=== PATIENT | male | born 1935 | race Caucasian/White ===

== ENCOUNTER → 2017-12-17 | Outpatient (CLI) | payer MEDICARE ==
[~2017-12-17] MED LIST: ASPIR 8181 MG; BENAZEPRIL HCL10 MG PO; CENTRUM COMPLE1 EACH; CRESTOR10 MG PO; FLONASE; METFORMIN HCL500 MG PO; PLAVIX75 MG PO
[2017-12-17 11:18] LABS: BASOPHILS % 0.4 % (0.0-1.0); EOSINOPHILS # (AUTO) 0.2 (0.0-0.4); EOSINOPHILS % 2.3 % (0.0-6.0); HEMATOCRIT 39.3 % (38.2-49.6); HEMOGLOBIN 13.5 g/dL (14.0-18.0); LYMPHOCYTES # (AUTO) 2.2 (1.0-3.2); MEAN CORPUSCULAR HEMOGLOBIN 31.3 pg (28-32); MEAN CORPUSCULAR HGB CONC 34.4 g/dL (31-35); MEAN CORPUSCULAR VOLUME 91.2 fL (81-99); MONOCYTES # (AUTO) 0.6 (0.2-0.8); PLATELET COUNT 177 x10e3/uL (140-360); RED BLOOD COUNT 4.31 x10e6/uL (4.3-5.7); RED CELL DISTRIBUTION WIDTH 11.7 % (11.7-14.4)
[2017-12-17 11:44] LABS: ALBUMIN 3.7 g/dL (3.5-5.0); ANION GAP 12.6 mmol/L (8-16); CALCIUM 10.1 mg/dL (8.4-10.2); CHOL/HDL RATIO 4.5 (3.9-4.7); CREATININE, SERUM 1.89 mg/dL (0.72-1.25); POTASSIUM 4.6 mmol/L (3.5-5.1)
--- NOTE | 2017-12-18 08:25 | Diagnostic Imaging Report ---
History: Low back pain, right-sided pain Comparison studies: None Technique: Sagittal, coronal and axial T2 , sagittal T1 and IR, axial spin density oblique. Intravenous contrast: None Findings: Number of lumbar vertebral bodies:5 Alignment: Straightening of the lumbar lordosis. Minimal grade 1 anterolisthesis of L4 over L5 and minimal grade 1 retrolisthesis of L5 over S1.Mild levoscoliosis centered at L4-L5. Soft tissues: Mild edema signal at the right anterolateral soft tissues surrounding a L4-L5 bridging osteophyte. 1.2 cm left interpolar kidney cyst. Paraspinal muscles: Mild to moderate fatty infiltration secondary to atrophy more significant at the lumbosacral junction. Lower thoracic cord:Normal in signal and morphology. The tip of the conus is at L1 inferior endplate. Cauda equina: No masses. No arachnoiditis. Vertebrae: Bridging osteophytes from L1 through L5 on the right anterolateral aspect with edema signal at L1 inferior endplate and L4-L5 endplates in the right. No compression fractures, infection or neoplasm. Degenerative changes: L1-L2: Disc degeneration with loss of T2 signal. Mild diffuse disc bulge and mild facet hypertrophy without significant canal stenosis or foraminal narrowing. L2-L3: Disc degeneration with loss of T2 signal. Diffuse disc bulge with superimposed small left central disc protrusion, mild facet hypertrophy and ligamentum flavum thickening results in mild canal stenosis without significant foraminal narrowing. L3-L4: Disc degeneration with loss of T2 signal. Diffuse disc bulge with superimposed small central annular fissure, moderate facet hypertrophy and ligamentum flavum thickening results in moderate canal stenosis and moderate right foraminal narrowing. L4-L5: Disc degeneration with loss of T2 signal. Diffuse disc bulge, moderate facet hypertrophy and ligamentum flavum thickening results in severe canal stenosis and mild right foraminal narrowing. 0.4 cm medially projecting synovial cyst arising from the right facet joint contributes to the canal stenosis. L5-S1: Fused intervertebral space. Mild facet hypertrophy with patent canal and foramina. Additional findings: None IMPRESSION: Severe canal stenosis at L4-L5 secondary to diffuse disc bulge and posterior element hypertrophy. 0.4 cm synovial cyst arising from the right facet joint contributes to the canal stenosis. Synovitis changes at L4-L5. Moderate degenerative canal stenosis and moderate right foraminal at L3-L4. Right anterolateral bridging osteophytes from L1 through L5 with edema signal at L1 inferior endplate and L4-L5 endplates. Adjacent soft tissue inflammation at L4-L5 right osteophyte. 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 Signed by: DR Camacho Foster M.D. on 12/18/2017 8:21 AM
== END ==
LOC: LAB 11:00
PROVIDERS: ATTEND General Practice
DX: E11.65 Type 2 diabetes mellitus with hyperglycemia (principal); I10 Essential (primary) hypertension; Z79.84 Long term (current) use of oral hypoglycemic drugs; R53.83 Other fatigue; M54.5 Low back pain; M25.551 Pain in right hip
CPT/HCPCS: 36415; 72148; 80053; 80061; 83036; 85025

== ENCOUNTER → 2018-01-01 | Outpatient (CLI) | payer MEDICARE ==
--- NOTE | 2018-01-01 16:01 | Diagnostic Imaging Report ---
PROCEDURE: Frontal and lateral views of the chest. COMPARISON: Patients [facility], , CHEST 2 VIEWS, 03/07/2016, 8:01. INDICATIONS: PRE OP HERNIATED DISC FINDINGS: Lines/tubes: None. Lungs: The lungs are well inflated and grossly clear. Likely azygos lobe. There is no evidence of pneumonia or pulmonary edema. Pleura: There is no pleural effusion or pneumothorax. Heart and mediastinum: The heart and the mediastinum are normal. Bones: No acute bony abnormality. Degenerative changes in the thoracic spine. IMPRESSION: 1. No acute cardiopulmonary abnormalities. Chase Malik M.D. Dictated by: Chase Malik M.D. on 01/01/2018 at 16:03 Electronically approved by: Chase Malik M.D. on 01/01/2018 at 16:03
== END ==
LOC: RAD 15:08
PROVIDERS: ATTEND General Practice
DX: Z01.818 Encounter for other preprocedural examination (principal); M51.26 Other intervertebral disc displacement, lumbar region; R06.02 Shortness of breath; R42 Dizziness and giddiness
CPT/HCPCS: 71046

== ENCOUNTER 2019-12-30 23:24 | Emergency (ER) | payer MEDICARE ==
[~2019-12-30] VITALS: Ht 175.3 cm; Wt 83.9 kg
[2019-12-30] MEDS ORDERED: PANTOPRAZOLE 40 MG 10ML VIAL IV STA (23:25)
--- OUTSIDE RECORDS SUMMARY | 2019-12-30 23:27 | XMS REPORT | Continuity of Care Document ---
Author Author [employer]ALONDRA Organization [employer] Address Unknown Phone Unavailable Care Team Providers Care Space Operations Name Role Phone [employer] Information [employer] Unavailable Un available Problems Problem Status Onset Date Classification Date Reported Comments Source 466.0 - ACUTE BRONCHITI Active 07/18/2012 [facility] [place] Medications No Data Provided for This Section Allergies, Adverse Reactions, Alerts No Known Medication Allergies Immunizations No Data Provided for This Section Results No Data Provided for This Section Pathology Reports No Data Provided for This Section Diagnostic Reports No Data Provided for This Section Consultation Notes No Data Provided for This Section Discharge Summaries No Data Provided for This Section History and Physicals No Data Provided for This Section Vital Signs No Data Provided for This Section Encounters Location Location Details Encounter Type Encounter Number Reason For Visit Attending Provider ADM Date DC Date Status Source OD [id number] 466.0 - ACUTE BRONCHITI NANETTE MCCLOUD 07/18/2012 Active [facility] [place] Procedures No Data Provided for This Section Assessment and Plan No Data Provided for This Section Plan of Care No Data Provided for This Section Social History No Data Provided for This Section Family History No Data Provided for This Section Advance Directives No Data Provided for This Section Functional Status No Data Provided for This Section
--- OUTSIDE RECORDS SUMMARY | 2019-12-30 23:27 | XMS REPORT | Clinical Summary ---
Author Author [facility] Address Unknown Phone Unavailable Care Team Providers Care Legal Records Clerk Name Role Phone Armin Carter MD PCP Allergies No Known Allergies Medications End Date Status Medication Sig Dispensed Refills Start Date Active pravastatin (PRAVACHOL) Take 40 mg by 0 40 MG tablet mouth daily. Active metFORMIN (GLUCOPHAGE) Take 500 mg 0 500 mg tablet by mouth daily. Active clopidogrel (PLAVIX) 75 Take 75 mg by 0 mg tablet mouth daily. Active aspirin (ECOTRIN) 81 MG Take 81 mg by 0 enteric coated tablet mouth daily. Active tamsulosin (FLOMAX) 0.4 Take 0.4 mg 0 mg capsule by mouth daily with dinner. Active multivit-min/FA/lycopen/l Take 1 tablet 0 utein (CENTRUM SILVER MEN by mouth ORAL) daily. Active Problems Not on file Encounters Care Team Description Date Type Specialty Erich Kaiser MD Selective coronary angiography [14579 (C PT)] 01/09/2019 Surgery Procedural Cardiolo gy Erich Kaiser MD Abnormal nuclear stress test; Angina at rest (HCC) 01/09/2019 Hospital Procedural Cardiolo gy Encounter after 12/29/2018 Social History Date Tobacco Use Types Packs/Day Years Used Never Smoker Smokeless Tobacco: Never Used Drinks/Week oz/Week Comments Alcohol Use occasionally drinks a beer Yes Sex Assigned at Date Recorded Not on file Industry Job Start Date Occupation Not on file Not on file Not on file Travel End Travel History Travel Start No recent travel history available. Last Filed Vital Signs Reading Time Taken Comments Vital Sign 132/63 01/09/2019 10:15 AM CDT Blood Pressure 67 01/09/2019 10:30 AM CDT Pulse 36.4 C (97.5 F) 01/09/2019 7:40 AM CDT Temperature 12 01/09/2019 10:30 AM CDT Respiratory Rate 98% 01/09/2019 10:30 AM CDT Oxygen Saturation - - Inhaled Oxygen Concentration 86.8 kg (191 lb 5 oz) 01/09/2019 5:27 AM CDT Weight 175.3 cm (5' 9") 01/09/2019 5:27 AM CDT Height 28.25 01/09/2019 5:27 AM CDT Body Mass Index Plan of Treatment Not on file Procedures Comments Procedure Name Priority Date/Time Associated Diag nosis CV SELECTIVE CORONARY Routine 01/09/2019 Abnormal nuclear stress ANGIOGRAPHY 7:28 AM CDT test Angina at rest (HCC) CV LEFT HEART CATH Routine 01/09/2019 Abnormal nu clear stress 7:28 AM CDT test Angina at rest (HCC) ECG 12-LEAD STAT 01/09/2019 5:17 AM CDT POC GLUCOSE Routine 01/09/2019 5:16 AM CDT after 12/29/2018 Results * Cv wheelabrator operator procedure (01/09/2019 7:28 AM CDT) Specimen Narrative Performed At [facility] LM- patent LAD- mid stents mild in-stent restenosi s LCX- small vessel OM1- stent patent RCA- mid 40% LVEDP 18mmHg No aortic valve gradient upon pullback No LV gram due to elevated sCr Medical management Performing Organization Address City/State/Zipcomd Ph one Number [facility] [address] [place] [address], * ECG 12 lead (01/09/2019 5:17 AM CDT) Ventricular 71 [facility] rate Atrial rate 71 [facility] MO interval 192 [facility] QRSD interval 100 [facility] QT interval 406 [facility] QTC interval 441 [facility] P axis 1 31 [facility] QRS axis 1 40 [facility] T wave axis 44 [facility] EKG impression Normal sinus rhythm with sinus [facility] MU SE arrhythmia-Normal ECG-No previous ECGs available- Specimen Narrative Performed At This result has an attachment that is n ot available. Performing Organization Address City/State/Zipcode Ph one Number [facility] MUSE [address] [place] [address] * POC glucose (01/09/2019 5:16 AM CDT) POC glucose 212 (H) 65 - 99 mg/dL CARTER Comment: [facility] Notified RN HOSPITAL Meter ID: [id number] Dry Clipper Tender: Kevin Mendes Specimen Performing Organization Address City/State/[facility] Ph one Number [facility] DEPARTMENT OF [address] [place] [phone] PATHOLOGY AND GENOMIC MEDICINE [facility] [address] [place] [phone] HOSPITAL after 12/29/2018 Insurance Type Payer Benefit Subscriber ID Effective Phone Address Plan / Dates Group Medicare MEDICARE MEDICARE xxxxxxxxxxx 2000- CARTER, PART A AND Present [place] B Commercial AAR AAR xxxxxxxxxxx 2017-P SUPPLEMENT resent Advance Directives For more information, please contact: [phone] Patient Ultrasound Supervisor Explanation Type Date Recorded Advance Directives, Living Will and Medical Power of Handle And Vent Machine Operator
--- OUTSIDE RECORDS SUMMARY | 2019-12-30 23:27 | XMS REPORT | CCD ---
Author Author [employer] ALONDRA Desouza Organization [facility] Outpatient Imaging - Kirill hurst Address Unknown Phone Unavailable Care Team Providers Care Manager Product Marketing Name Role Phone Armin Carter CP Allergies, Adverse Reactions, Alerts Substance Reaction Status NKDA Active
--- OUTSIDE RECORDS SUMMARY | 2019-12-30 23:27 | XMS REPORT ---
Author Author [facility] t Organization [facility] Address [address] [place] [address] Phone Unavailable Care Team Providers Care Pharmacy Tech Name Role Phone Raul MUNOZ, Jose Funez PCP Kali Kaiser MD Attphys Ger MCCLOUD Attphys Unavailable Payers Payer Name Policy Type Policy Number Effective Date Expiration Date S pamela MEDICAREMEDICARE PART A AND Slwbckffznza84/08/1999-PresentHOU ДМИТРИЙ FLMedicare xxxxxxxxxxx 2000 00:00:00 Jeffrey Dickerson AARPAARP SUPPLEMENTxxxxxxxxxxx2017-PresentCommercial xxxxxxxxxxx 2017 00:00:00 Jeffrey Dickerson Problems Condition Name Condition Details Condition Category Status Onset Date Resolution Date Last Treatment Date Treating Clinician Comments Source 466.0 - ACUTE BRONCHITI 466. 0 - ACUTE BRONCHITI Active 07/18/2012 [facility] [place] Diagnosis Active 2012-07-18 00:01:00 2012-07-18 15:15:00 [facility] [place] Allergies, Adverse Reactions, Alerts This patient has no known allergies or adverse reactions. Social History Social Habit Start Date Stop Date Quantity Comments Source Sex Assigned At Shai lombardo Shinto Alcohol intake 2019-01-29 00:00:00 2019-01-29 00:00:00 Current drinker of alcohol (finding) Jeffrey Dickerson Alcohol Comment 2019-01-08 00:00:00 2019-01-08 00:00:00 occasion ally drinks a beer Jeffrey Dickerson Smoking Status Start Date Stop Date Source Never smoker Jeffrey Lealaldo t Medications Ordered Medication Name Filled Medication Name Start Date Stop Da te Current Medication? Ordering Clinician Indication Dosage Frequency Signature (SIG) Comments Components Source pravastatin (PRAVACHOL) 40 MG tablet 2019-01-09 11:08:04 Ye s 40mg QD Take 40 mg by mouth daily. Jeffrey Ernandezo dist metFORMIN (GLUCOPHAGE) 500 mg tablet 2019-01-09 11:08:04 Ye s 500mg QD Take 500 mg by mouth daily. Jeffrey Ernandez odist clopidogrel (PLAVIX) 75 mg tablet 2019-01-09 11:08:04 Yes 75mg QD Take 75 mg by mouth daily. [facility] aspirin (ECOTRIN) 81 MG enteric coated tablet 2019-01-09 11:08:0 4 Yes 81mg QD Take 81 mg by mouth daily. Letitia Dickerson tamsulosin (FLOMAX) 0.4 mg capsule 2019-01-09 11:08:04 Yes .4mg QD Take 0.4 mg by mouth daily with dinner. Ev Dickerson multivit-min/FA/lycopen/lutein (CENTRUM SILVER MEN ORAL) 2019-01-09 11:08:04 Yes 1{tbl} QD Take 1 tablet by mouth daily. Jeffrey Dickerson Vital Signs Vital Name Observation Time Observation Value Comments Source Heart rate 2019-01-09 10:30:00 67 /min Jeffrey Dickerson Respiratory rate 2019-01-09 10:30:00 12 /min Louie Dickerson Oxygen saturation in Arterial blood by Pulse oximetry 01-09 10:30:00 98 /min Jeffrey Dickerson Systolic blood pressure 2019-01-09 10:15:00 132 mm[Hg] Jeffrey Dickerson Diastolic blood pressure 2019-01-09 10:15:00 63 mm[Hg] Jeffrey Dickerson Body temperature 2019-01-09 07:40:00 36.39 Charlotte Louie Dickerson Body height 2019-01-09 05:27:00 175.3 cm Jeffrey Dickerson Body weight 2019-01-09 05:27:00 86.779 kg Jeffrey Dickerson BMI 2019-01-09 05:27:00 28.25 kg/m2 Jeffrey Dickerson Procedures Procedure Date / Time Performed Performing Clinician Sour e CV LEFT HEART CATH 2019-01-09 07:28:04 Erich Kaiserist CV SELECTIVE CORONARY ANGIOGRAPHY 2019-01-09 07:28:04 Tin Kaiser ECG 12-LEAD 2019-01-09 05:17:25 Erich Kaiser POC GLUCOSE 2019-01-09 05:16:00 Erich Kaiser Encounters Start Date/Time End Date/Time Encounter Type Admission Type [facility] Care Department Encounter ID Source 2012-07-18 15:06:00 2012-07-18 15:06:00 OD MHIEALT MHIEALT [id number] [facility] [place] Results Test Description Test Time Test Comments Results Result Comments Source Cv labor/excavator procedure 2019-01-28 16:17:28 LM- pa tentLAD- mid stents mild in- stent restenosisLCX- small vesselOM1- stent patentRCA- mid 40% LVEDP 18mmHgNo aortic valve gradient upon pullbackNo LV gram due to elevated sCr Medical management Jeffrey Dickerson ECG 12 lead 2019-01-09 10:05:52 Test Item Ventricular rate (test code = 253) 71 Atrial rate (test code = 255) 71 WA interval (test code = 266) 192 QRSD interval (test code = 260) 100 QT interval (test code = 264) 406 QTC interval (test code = 265) 441 P axis 1 (test code = 267) 31 QRS axis 1 (test code = 268) 40 T wave axis (test code = 270) 44 EKG impression (test code = 273) Normal sinus rhythm w ith sinus arrhythmia- Normal ECG-No previous ECGs available- [id number] 05:21:24* Test Item Value Reference Range Interpretation Comments POC glucose (test code = 51115-9) 212 mg/dL 65-99 H [facility] Notified RNMeter ID: [id number]: Kevin Mendes Lab Interpretation (test code = 23171-1) Abnormal [facility] [place] [address] Patient Name: ALONDRA DONNELLY MR #: [id number] : 1935 Age/Sex: 82/M Req #: [id number] Adm Physician: Ordered by: NANETTE MCCLOUD Report #: [id number] Location: [facility] Room/Bed: Procedure: [id number] DX/CHEST 2 VIEWS Exam Date: 01/01/18 Exam Time: 1522 REPORT STATUS: Signed PROCEDURE: Frontal and lateral views of the chest. COMPARISON: Patient s [facility], DX, CHEST 2 VIEWS, 03/07/2016, 8:01. INDICATIONS: WA E OP HERNIATED DISC FINDINGS: Lines/tubes: None. Lungs: The lungs are well inflated and grossly clear. Likely azygos lobe. There is no ev idence of pneumonia or pulmonary edema. Pleura: There is no pleural effus ion or pneumothorax. Heart and mediastinum: The heart and the mediastinum are normal. Bones: No acute bony abnormality. Degenerative changes in th e thoracic spine. IMPRESSION: 1. No acute cardiopulmonary abnor malities. Chase Reid M.D. Dictated by: Chase Reid M.D. on 01/01/2018 at 16:03 Electronically approved by: Chase lee M.D. on 01/01/2018 at 16:03 Dictated By: CHASE REID MD 1600 Transcribed By: IN FCE on 01/01/18 1603 COPY TO: NANETTE MCCLOUD MRI SPINE LUMBAR WO [place] [address] Patient Name: ALONDRA DONNELLY MR #: [id number] : 1 Age/Sex: 82/M Req #: [id number] Adm Physician: Ordered by: NANETTE MCCLOUD Report #: [id number] Location: LAB Room/Bed : Procedure: [id number] MRI/MRI SPINE LUMBAR WO Exam Date: Exam Time: REPORT STATUS: Signed His tory: Low back pain, right-sided pain Comparison studies: None Technique: Sagittal, coronal and axial T2 , sagittal T1 and IR, axial spin density o blique. Intravenous contrast: None Findings: Number of lumbar verteb ral bodies:5 Alignment: Straightening of the lumbar lordosis. Minimal grade 1 anterolisthesis of L4 over L5 and minimal grade 1 retrolisthesis of L5 over S1.Mild levoscoliosis centered at L4-L5. Soft tissues: Mild edema signal at the right anterolateral soft tissues surrounding a L4-L5 bridging osteophyte. 1.2 cm left interpolar kidney cyst. Paraspinal muscles: Mild to moderate fatt y infiltration secondary to atrophy more significant at the lumbosacral juncti on. Lower thoracic cord:Normal in signal and morphology. The tip of the conus is at L1 inferior endplate. Cauda equina: No masses. No arachnoiditis. Vertebrae: Bridging osteophytes from L1 through L5 on the right anterolateral aspect with edema signal at L1 inferior endplate and L4-L5 endplates in the r ight. No compression fractures, infection or neoplasm. Degenerative ortiz es: L1-L2: Disc degeneration with loss of T2 signal. Mild diffuse disc bu lge and mild facet hypertrophy without significant canal stenosis or foraminal narrowing. L2-L3: Disc degeneration with loss of T2 signal. Diffuse disc bulge with superimposed small left central disc protrusion, mild facet hypert rophy and ligamentum flavum thickening results in mild canal stenosis without significant foraminal narrowing. L3-L4: Disc degeneration with loss of T2 signal. Diffuse disc bulge with superimposed small central annular fissure, moderate facet hypertrophy and ligamentum flavum thickening results in modera te canal stenosis and moderate right foraminal narrowing. L4-L5: Disc d egeneration with loss of T2 signal. Diffuse disc bulge, moderate facet hypertr ophy and ligamentum flavum thickening results in severe canal stenosis and mil d right foraminal narrowing. 0.4 cm medially projecting synovial cyst arising from the right facet joint contributes to the canal stenosis. L5-S1: Fuse d intervertebral space. Mild facet hypertrophy with patent canal and foramina. Additional findings: None IMPRESSION: Severe canal stenosis at L4-L5 secondary to diffuse disc bulge and posterior element hypertrophy. 0.4 cm synovial cyst arising from the right facet joint contributes to the canal s tenosis. Synovitis changes at L4-L5. Moderate degenerative canal stenosis a nd moderate right foraminal at L3-L4. Right anterolateral bridging osteophy lester from L1 through L5 with edema signal at L1 inferior endplate and L4-L5 end plates. Adjacent soft tissue inflammation at L4-L5 right osteophyte. Diff use disc degeneration of the lumbar spine and other degenerative changes as de scribed above. Signed by: DR Camacho Foster M.D. on 12/18/2017 8:21 A M Dictated By: CAMACHO PEREZ MD 0 Transcribed By: SARAI on 12/18/17820 CO PY TO: NANETTE MCCLOUD
[2019-12-30 23:49] LABS: BASOPHILS # (AUTO) 0.1 (0.0-0.1); BASOPHILS % 0.6 % (0.0-1.0); EOSINOPHILS # (AUTO) 0.5 (0.0-0.4); EOSINOPHILS % 5.4 % (0.0-6.0); HEMATOCRIT 37.9 % (38.2-49.6); HEMOGLOBIN 12.9 g/dL (14.0-18.0); LYMPHOCYTES # (AUTO) 2.7 (1.0-3.2); LYMPHOCYTES % 28.4 % (18.0-39.1); MEAN CORPUSCULAR HEMOGLOBIN 30.8 pg (28-32); MEAN CORPUSCULAR VOLUME 90.5 fL (81-99); MONOCYTES # (AUTO) 0.7 (0.2-0.8); MONOCYTES % 7.6 % (4.4-11.3); NEUTROPHILS # (AUTO) 5.5 (2.1-6.9); NEUTROPHILS % 57.8 % (38.7-80.0); PLATELET COUNT 174 x10e3/uL (140-360); RED BLOOD COUNT 4.19 x10e6/uL (4.3-5.7)
[2019-12-30] MEDS ORDERED: HYDRALAZINE HCL 20 MG/ML VIAL IV STA (23:57)
[2019-12-31 00:07] LABS: ALBUMIN 4.2 g/dL (3.5-5.0); ALBUMIN/GLOBULIN RATIO 1.2 (0.8-2.0); ANION GAP 17.2 mmol/L (8-16); CALCIUM 9.6 mg/dL (8.4-10.2); CREATININE, SERUM 1.91 mg/dL (0.72-1.25); POTASSIUM 4.2 mmol/L (3.5-5.1)
[2019-12-31 00:09] LABS: AMYLASE 68 U/L (25-125); LIPASE 21 U/L (8-78)
[2019-12-31 00:14] LABS: CREATINE KINASE MB 1.7 ng/mL (0-5.0)
--- NOTE | 2019-12-31 00:21 | Emergency Department Note ---
History of Present Illnes History of Present Illness Chief Complaint: General Medicine Complaints History of Present Illness This is a 84 year old male who presents with c/o throat burning since noon, worse when he lays down and better when he sits up. Historian: Patient Arrival Mode: [place] Onset (how long ago): hour(s) (11) Location: throat Quality: burning sensation Radiation: non-radiation Severity: moderate Onset quality: gradual Duration (how long): hour(s) (11) Timing of current episode: constant Progression: unchanged Chronicity: new Context: recent illness Exacerbating factors: none Associated symptoms: denies other symptoms Treatments prior to arrival: none Risk factors: cad Past Medical/Family History Physician Review I have reviewed the patient's past medical and family history. Any updates have been documented here. Past Medical History Recent Fever: No Clinical Suspicion of Infectio: No New/Unexplained Change in Ment: No Past Medical History: Hypertension, CAD Past Surgical History: PCI Other Surgery: STENTS Social History Smoking Cessation: Never Smoker Alcohol Use: None Any Illegal Drug Use: No Family History Family history of heart diseas: No Other Last Tetanus: UNK Review of Systems Review of Systems Constitutional: no symptoms EENTM: as per HPI Cardiovascular: no symptoms Respiratory: no symptoms Gastrointestinal: no symptoms Genitourinary: no symptoms Musculoskeletal: no symptoms Neurological: no symptoms Psychological: no symptoms Endocrine: no symptoms Hematological/Lymphatic: no symptoms Review of other systems All other systems reviewed and negative. Physical Exam Related Data Allergies: Coded Allergies: No Known Allergies (Unverified , 06/23/15) Triage Vital Signs Vital Signs Date Time Temp Pulse Resp B/P (MAP) Pulse Ox O2 Delivery O2 Flow Rate FiO2 12/30/19 23:33 97.0 88 18 190/90 97 Vital signs reviewed: Yes Physical Exam CONSTITUTIONAL Constitutional: well-developed, well-nourished HENT HENT: normocephalic, atraumatic, oropharynx clear/moist, nose normal HENT L/R: left ext ear normal, right ext ear normal EYES Eyes: PERRL, conjunctivae normal NECK Neck: ROM normal PULMONARY Pulmonary: effort normal, breath sounds normal CARDIOVASCULAR Cardiovascular: regular rhythm, heart sounds normal, capillary refill normal, normal rate GASTROINTESTINAL Abdominal: soft, nontender, bowel sounds normal GENITOURINARY Genitourinary: exam deferred SKIN Skin: warm, dry MUSCULOSKELETAL Musculoskeletal: ROM normal NEUROLOGICAL Neurological: alert, oriented x 3, no gross motor or sensory deficits PSYCHOLOGICAL Psychological: mood/affect normal, judgement normal Results Laboratory Result Diagram: 12/30/19 5228 Laboratory Laboratory Tests Test 12/30/19 23:35 White Blood Count 9.52 x10e3/uL (4.8-10.8) Red Blood Count 4.19 x10e6/uL (4.3-5.7) Hemoglobin 12.9 g/dL (14.0-18.0) Hematocrit 37.9 % (38.2-49.6) Mean Corpuscular Volume 90.5 fL (81-99) Mean Corpuscular Hemoglobin 30.8 pg (28-32) Mean Corpuscular Hemoglobin Concent 34.0 g/dL (31-35) Red Cell Distribution Width 12.0 % (11.7-14.4) Platelet Count 174 x10e3/uL (140-360) Neutrophils (%) (Auto) 57.8 % (38.7-80.0) Lymphocytes (%) (Auto) 28.4 % (18.0-39.1) Monocytes (%) (Auto) 7.6 % (4.4-11.3) Eosinophils (%) (Auto) 5.4 % (0.0-6.0) Basophils (%) (Auto) 0.6 % (0.0-1.0) Neutrophils # (Auto) 5.5 (2.1-6.9) Lymphocytes # (Auto) 2.7 (1.0-3.2) Monocytes # (Auto) 0.7 (0.2-0.8) Eosinophils # (Auto) 0.5 (0.0-0.4) Basophils # (Auto) 0.1 (0.0-0.1) Absolute Immature Granulocyte (auto 0.02 x10e3/uL (0-0.1) Sodium Level 137 mmol/L (136-145) Potassium Level 4.2 mmol/L (3.5-5.1) Chloride Level 101 mmol/L (98-107) Carbon Dioxide Level 23 mmol/L (22-29) Anion Gap 17.2 mmol/L (8-16) Blood Urea Nitrogen 20 mg/dL (7-26) Creatinine 1.91 mg/dL (0.72-1.25) Estimat Glomerular Filtration Rate 34 ML/MIN (60-) BUN/Creatinine Ratio 10 (6-25) Glucose Level 260 mg/dL (74-118) Calcium Level 9.6 mg/dL (8.4-10.2) Total Bilirubin 0.6 mg/dL (0.2-1.2) Aspartate Amino Transf (AST/SGOT) 17 IU/L (5-34) Alanine Aminotransferase (ALT/SGPT) 15 IU/L (0-55) Alkaline Phosphatase 150 IU/L (40-150) Creatine Kinase 103 IU/L (30-200) Creatine Kinase MB 1.70 ng/mL (0-5.0) Troponin I 0.029 ng/mL (0-0.300) Total Protein 7.7 g/dL (6.5-8.1) Albumin 4.2 g/dL (3.5-5.0) Globulin 3.5 g/dL (2.3-3.5) Albumin/Globulin Ratio 1.2 (0.8-2.0) Amylase Level 68 U/L (25-125) Lipase 21 U/L (8-78) Laboratory Tests Test 12/30/19 23:35 White Blood Count 9.52 x10e3/uL (4.8-10.8) Red Blood Count 4.19 x10e6/uL (4.3-5.7) Hemoglobin 12.9 g/dL (14.0-18.0) Hematocrit 37.9 % (38.2-49.6) Mean Corpuscular Volume 90.5 fL (81-99) Mean Corpuscular Hemoglobin 30.8 pg (28-32) Mean Corpuscular Hemoglobin Concent 34.0 g/dL (31-35) Red Cell Distribution Width 12.0 % (11.7-14.4) Platelet Count 174 x10e3/uL (140-360) Neutrophils (%) (Auto) 57.8 % (38.7-80.0) Lymphocytes (%) (Auto) 28.4 % (18.0-39.1) Monocytes (%) (Auto) 7.6 % (4.4-11.3) Eosinophils (%) (Auto) 5.4 % (0.0-6.0) Basophils (%) (Auto) 0.6 % (0.0-1.0) Neutrophils # (Auto) 5.5 (2.1-6.9) Lymphocytes # (Auto) 2.7 (1.0-3.2) Monocytes # (Auto) 0.7 (0.2-0.8) Eosinophils # (Auto) 0.5 (0.0-0.4) Basophils # (Auto) 0.1 (0.0-0.1) Absolute Immature Granulocyte (auto 0.02 x10e3/uL (0-0.1) Sodium Level 137 mmol/L (136-145) Potassium Level 4.2 mmol/L (3.5-5.1) Chloride Level 101 mmol/L (98-107) Carbon Dioxide Level 23 mmol/L (22-29) Anion Gap 17.2 mmol/L (8-16) Blood Urea Nitrogen 20 mg/dL (7-26) Creatinine 1.91 mg/dL (0.72-1.25) Estimat Glomerular Filtration Rate 34 ML/MIN (60-) BUN/Creatinine Ratio 10 (6-25) Glucose Level 260 mg/dL (74-118) Calcium Level 9.6 mg/dL (8.4-10.2) Total Bilirubin 0.6 mg/dL (0.2-1.2) Aspartate Amino Transf (AST/SGOT) 17 IU/L (5-34) Alanine Aminotransferase (ALT/SGPT) 15 IU/L (0-55) Alkaline Phosphatase 150 IU/L (40-150) Creatine Kinase 103 IU/L (30-200) Creatine Kinase MB 1.70 ng/mL (0-5.0) Troponin I 0.029 ng/mL (0-0.300) Total Protein 7.7 g/dL (6.5-8.1) Albumin 4.2 g/dL (3.5-5.0) Globulin 3.5 g/dL (2.3-3.5) Albumin/Globulin Ratio 1.2 (0.8-2.0) Amylase Level 68 U/L (25-125) Lipase 21 U/L (8-78) Laboratory Tests Test 12/30/19 23:35 White Blood Count 9.52 x10e3/uL (4.8-10.8) Red Blood Count 4.19 x10e6/uL (4.3-5.7) Hemoglobin 12.9 g/dL (14.0-18.0) Hematocrit 37.9 % (38.2-49.6) Mean Corpuscular Volume 90.5 fL (81-99) Mean Corpuscular Hemoglobin 30.8 pg (28-32) Mean Corpuscular Hemoglobin Concent 34.0 g/dL (31-35) Red Cell Distribution Width 12.0 % (11.7-14.4) Platelet Count 174 x10e3/uL (140-360) Neutrophils (%) (Auto) 57.8 % (38.7-80.0) Lymphocytes (%) (Auto) 28.4 % (18.0-39.1) Monocytes (%) (Auto) 7.6 % (4.4-11.3) Eosinophils (%) (Auto) 5.4 % (0.0-6.0) Basophils (%) (Auto) 0.6 % (0.0-1.0) Neutrophils # (Auto) 5.5 (2.1-6.9) Lymphocytes # (Auto) 2.7 (1.0-3.2) Monocytes # (Auto) 0.7 (0.2-0.8) Eosinophils # (Auto) 0.5 (0.0-0.4) Basophils # (Auto) 0.1 (0.0-0.1) Absolute Immature Granulocyte (auto 0.02 x10e3/uL (0-0.1) Lab results reviewed: Yes Imaging Imaging results reviewed: Yes Impressions EXAMINATION: CHEST SINGLE (PORTABLE) INDICATION: Esophageal burning COMPARISON: None FINDINGS: TUBES and LINES: None. LUNGS: Normal lung volumes. Lungs are clear. No consolidations. PLEURA: No pleural effusion or pneumothorax. HEART AND MEDIASTINUM: The cardiomediastinal silhouette is unremarkable. BONES AND SOFT TISSUES: No acute osseous lesion. Soft tissues are unremarkable. UPPER ABDOMEN: No free air under the diaphragm. IMPRESSION: No acute thoracic radiographic abnormality. Signed by: Mamadou Burns DO on 12/31/2019 1:12 AM Procedures 12 Lead ECG Interpretation Subgrade Roller Operator: Interpreted by ED physician Rhythm: sinus rhythm Rate: normal BPM: 84 ST segments normal: Yes T waves normal: Yes Other findings: no other findings Clinical Impression: normal ECG Critical Care Time Subsequent provider I assumed direction of critical care for this patient from another provider of my specialty. Assessment & Plan Assessment & Plan Final Impression: (1) GERD (gastroesophageal reflux disease) (2) Hypertension Assessment & Plan pt with burning sensation to throat all day, no chest pain, however has cad history, cbc, cmp, cardiac enzymes, cxr, amylase lipase ordered to eval for for myocardial infarction, pancreatitis, elevated lft's protonix 40 mg iv ordered pts bp 190/92 states he did not take his bp medications today, hydralazine 10 mg iv ordered pt discharged with instructions for bland diet script protonix 30 mg po daily #15 Last Vital Signs Date Time Temp Pulse Resp B/P (MAP) Pulse Ox O2 Delivery O2 Flow Rate FiO2 12/31/19 00:02 190/92 12/31/19 00:00 84 20 100 12/30/19 23:33 97.0 Home Meds Reported Medications [Flonase] No Conflict Check 06/23/15 Multivitamin/Iron/Folic Acid (CENTRUM COMPLETE MULTIVIT TAB) 1 Each Tablet 06/23/15 Aspirin (ASPIR 81) 81 Mg Tablet. 06/23/15 Clopidogrel Bisulfate* (PLAVIX) 75 Mg Tablet, 75 MG PO DAILY, #30 TAB 06/23/15 Metformin Hcl (METFORMIN HCL) 500 Mg Tablet, 500 MG PO BID, #60 TAB 06/23/15 Rosuvastatin Calcium (CRESTOR) 10 Mg Tab, 40 MG PO DAILY THERAPEUTICALLY SUBSTITUTED WITH SIMVASTATIN 40MG 06/23/15 Benazepril Hcl (BENAZEPRIL HCL) 10 Mg Tablet, 20 MG PO DAILY, #30 TAB 06/23/15 Medications in the ED Pantoprazole Sodium 40 mg NOW STAT IV Last administered on 12/30/19at 23:36; Admin Dose 40 MG; Start 12/30/19 at 23:25; Stop 12/30/19 at 23:34; Status DC Hydralazine HCl 10 mg NOW STAT IV Last administered on 12/31/19at 00:02; Admin Dose 10 MG; Start 12/30/19 at 23:57; Stop 12/31/19 at 00:16; Status DC EDD BOYCE MD December 31, 2019 00:21
[2019-12-31] MEDS ORDERED: DONNATAL/LIDOCAINE/MAALOX 30 ML SUSP PO ONE (00:45)
[2019-12-31] MEDS ORDERED: LIDOCAINE VISC 2% SOLN 15 ML UDC ONE (00:49)
[2019-12-31] MEDS ORDERED: MAGNESIUM/ALUMINUM/SIMETHICONE 30 ML UDC ONE (00:49)
[2019-12-31] MEDS ORDERED: BELLADONNA ALK/PHENOBARBITAL 5 ML UDC ONE (00:49)
--- NOTE | 2019-12-31 01:15 | Diagnostic Imaging Report ---
EXAMINATION: CHEST SINGLE (PORTABLE) INDICATION: Esophageal burning COMPARISON: None FINDINGS: TUBES and LINES: None. LUNGS: Normal lung volumes. Lungs are clear. No consolidations. PLEURA: No pleural effusion or pneumothorax. HEART AND MEDIASTINUM: The cardiomediastinal silhouette is unremarkable. BONES AND SOFT TISSUES: No acute osseous lesion. Soft tissues are unremarkable. UPPER ABDOMEN: No free air under the diaphragm. IMPRESSION: No acute thoracic radiographic abnormality. Signed by: Mamadou Bursn DO on 12/31/2019 1:12 AM
[2019-12-31 02:09] VITALS: BP 152/81
== END 2019-12-31 02:34 | disposition home or self-care (01) ==
LOC: ER 23:24
DX: K21.9 Gastro-esophageal reflux disease without esophagitis (principal); I10 Essential (primary) hypertension; I25.10 Atherosclerotic heart disease of native coronary artery without angina pectoris
CPT/HCPCS: 36415; 71045; 80053; 82150; 82550; 82553; 83690; 84484; 85025; 93005; 99284; C9113; J0360